=== PATIENT | female | born 1980 | race Caucasian/White ===

== ENCOUNTER → 2018-05-28 22:29 | Emergency (ER) | payer OTHER ==
[~2018-05-28 22:29] MED LIST: Ibuprofen TAB* 400 MG PO ONE; LORazepam TAB(*) 1 MG PO ONE
--- NOTE | 2018-05-28 23:16 | ED ---
HPI Chest Pain - HPI Summary HPI Summary: A 38 y/o female presents to [facility] with a chief complaint of intermittent chest pain for the past few weeks that worsened tonight. At triage she rated her pain as an 8/10 in severity. She also reports that she had a headache all day today, SOB and felt lightheaded and near syncopal. She describes her chest pain as a tightness, and says that her pain usually lasts anywhere from a few minutes to 20 minutes. She describes her SOB as trying to catch a deep breath, unlike her usual anxiety breathing. She reports that she has a Hx of anxiety and used to take medication for it, but hasnt in a long time. She also reports seeing a chiropractor for a herniated disc. She also thinks that she possibly has endometriosis. Hx of hypothyroidism. She denies a Hx of HTN or DM. - History of Current Complaint Chief Complaint: EDHeadache Time Seen by Provider: 05/28/18 22:59 Hx Obtained From: Patient, Family/Netsuite Developer Onset/Duration: Started Hours Ago, Still Present Timing: Intermittent, Lasting Minutes Initial Severity: Severe Current Severity: Moderate Pain Intensity: 8 Pain Scale Used: 0-10 Numeric Chest Pain Location: Diffuse Chest Pain Radiates: No Character: Tightness Aggravating Factor(s): Nothing Alleviating Factor(s): Nothing Associated Signs and Symptoms: Positive: Headaches, Shortness of Breath, Other: - lightheadedness - Allergy/Home Medications Allergies/Adverse Reactions: Allergies Allergy/AdvReac Type Severity Reaction Status Date / Time No Known Allergies Allergy Verified 05/28/18 22:50 Home Medications: Home Medications Levothyroxine Sodium [Synthroid] 137 mcg PO DAILY 05/29/18 [History Confirmed ] PMH/Surg Hx/FS Hx/Imm Hx Endocrine/Hematology History: Reports: Hx Thyroid Disease - hypothyroidism Denies: Hx Diabetes Cardiovascular History: Denies: Hx Hypertension Infectious Disease History: No Infectious Disease History: Denies: Traveled Outside the [place] in Last 30 Days Review of Systems Negative: Fever Positive: Chest Pain Positive: Shortness Of Breath Neurological: Other - positive: lightheadedness Positive: Headache All Other Systems Reviewed And Are Negative: Yes Physical Exam - Summary Physical Exam Summary: Appearance: Well-appearing, Well-nourished, lying in bed comfortably Skin: Warm, dry, no obvious rash Eyes: sclera anicteric, no conjunctival pallor ENT: mucous membranes moist, pharynx appears normal Neck: Supple, nontender Respiratory: Clear to auscultation, no signs of respiratory distress Cardiovascular: Normal S1, S2. No murmurs. Normal distal pulses in tibial and radial bilaterally. Abdomen: Soft, nontender, normal active bowel sounds present Musculoskeletal: Normal, Strength/ROM Intact Neurological: A&Ox3, awake and alert, mentation is normal, speech is fluent and appropriate Psychiatric: anxious and tearful at times Triage Information Reviewed: Yes Vital Signs On Initial Exam: Initial Vitals Temp Pulse Resp BP Pulse Ox 98.3 F 112 20 163/107 100 05/28/18 22:30 05/28/18 22:30 05/28/18 22:30 05/28/18 22:30 05/28/18 22:30 Vital Signs Reviewed: Yes Diagnostics - Vital Signs Vital Signs Temp Pulse Resp BP Pulse Ox 05/28/18 22:30 98.3 F 112 20 163/107 100 - Laboratory Result Diagrams: 05/28/18 23:30 05/28/18 23:30 Lab Statement: Any lab studies that have been ordered have been reviewed, and results considered in the medical decision making process. - EKG 22:42 Cardiac Rate: Other Rate - Sinus arrhythmia at 86 bpm Summary of EKG Findings: Sinus arrhythmia at 86 bpm, no STEMI. Chest Pain Course/Dx - Course Course Of Treatment: A 38 y/o female presents to [facility] with a chief complaint of intermittent chest pain for the past few weeks that worsened tonight. The physical exam revealed that the patient was anxious and tearful at times. Bloodwork and chemistries obtained and are WNL. In the ED course the patient was given ibuprofen and lorazepam. The patient will be discharged and follow up with her PCP. The patient is agreeable with this plan. - Diagnoses Provider Diagnoses: Chest pain, Dyspnea, Anxiety Discharge - Sign-Out/Discharge Documenting (check all that apply): Patient Departure - DC Patient Received Moderate/Deep Sedation with Procedure: No - Discharge Plan Condition: Good Disposition: HOME Patient Education Materials: Chest Pain (ED) Referrals: Jessica Good MD [Primary Care Provider] - 3 Days Additional Instructions: We did not find any evidence of a cardiac condition causing your symptoms. Try to rest over the weekend and check in with your regular doctor on Thursday. If symptoms persist you may benefit from going back on the zoloft. - Billing Disposition and Condition Condition: GOOD Disposition: Home - Attestation Statements Document Initiated by Chalino: Yes Documenting Scribe: Cortez Mata Provider For Whom Chalino is Documenting (Include Credential): Junito Red MD Scribe Attestation: I, Cortez Mata, scribed for Junito Red MD on 05/29/18 at 0641. Scribe Documentation Reviewed: Yes Provider Attestation: The documentation as recorded by the Cortez reicnos accurately reflects the service I personally performed and the decisions made by me, Junito Red MD Status of Scrsudarshan Document: Viewed
[2018-05-28 23:36] LABS: ABS Basophils 0 10^3/ul (0-0.2); ABS Eosinophils 0.1 10^3/ul (0-0.6); ABS Lymphocytes 1.4 10^3/ul (1.0-4.8); ABS Monocytes 0.6 10^3/ul (0-0.8); ABS Neutrophils 9.3 10^3/ul (1.5-7.7); ABS Nucleated RBC 0 10^3/ul; Eosinophil % 0.4 %; Hematocrit 39 % (33-41); Hemoglobin 13.4 g/dL (12.0-16.0); Lymphocyte % 12.4 %; Mean Corpuscular HGB Conc 35 g/dL (31-36); Mean Corpuscular Hemoglobin 32 pg (27-31); Mean Corpuscular Volume 93 fL (80-97); Mean Platelet Volume 8.3 fL (7.4-10.4); Nucleated Red Blood Cells % 0; Platelet Count 361 10^3/uL (150-450); Red Blood Count 4.15 10^6 /uL (3.70-4.87); Red Cell Distribution Width 12 % (10.5-15); White Blood Count 11.4 10^3/uL (3.5-10.8)
[2018-05-28 23:53] LABS: Albumin 4.5 g/dL (3.2-5.2); Albumin/Globulin Ratio 1.7 (1-3); BUN/Creatinine Ratio 17.4 (8-20); Calcium 9.3 mg/dL (8.6-10.3); EGFR Non-African American 94.2 (>60); Globulin 2.6 g/dL (2-4); Potassium 3.5 mmol/L (3.5-5.0); Total Bilirubin 0.7 mg/dL (0.2-1.0); Total Protein 7.1 g/dL (6.4-8.9)
[2018-05-29 02:55] VITALS: BP 111/77
== END | disposition home or self-care (01) ==
LOC: ED 22:29
DX: R07.9 Chest pain, unspecified (principal); R06.00 Dyspnea, unspecified; R51 Headache; E03.9 Hypothyroidism, unspecified; R42 Dizziness and giddiness; F41.9 Anxiety disorder, unspecified
CPT/HCPCS: 36415; 80053; 84484; 85025; 93005; 99283; A9270-GY